=== PATIENT | male | born 1955 | race African-American/Black ===

== ENCOUNTER 2016-05-16 15:14 | Emergency (ER) | payer OTHER ==
[~2016-05-16] VITALS: Ht 172.7 cm; Wt 90.7 kg
[2016-05-16 15:15] VITALS: BP 137/95; PULSE 79; RESP 19; TEMP 97.6; O2SAT 99
--- NOTE | 2016-05-16 15:15 | NUR ---
Patient triaged and placed in waiting room. VSS and patient appears in no acute distress at this time. Accompanied by SELF, awaiting available bed, and MD notified of need for MSE.
--- NOTE | 2016-05-16 16:24 | NUR ---
Patient evaluated by ER ELEMENTARY LIBRARIAN Massiel in triage room
[2016-05-16] MEDS ORDERED: cloNIDine HCL 0.1 MG TABLET PO ONE ×2 (16:45→18:00)
[2016-05-16] MEDS ORDERED: KETOROLAC TROMETHAMINE 60 MG/2 ML VIAL IM ONE (16:45)
--- NOTE | 2016-05-16 17:32 | NUR ---
Patient to ER bed 8 to gown for evaluation. Side rails up. Report given to Mery PATEL.
--- NOTE | 2016-05-16 17:39 | NUR ---
patient to ER C/O severe 9/10 migraine headache for the past 3 weeks. States the pain of on and off with mild photophobia. AAOx4, unlabored breathing, no gait abnormalities, no N/V, no motor/sensory differences right/left. No signs of acute distress
[2016-05-16 18:29] VITALS: BP 141/77; PULSE 74; RESP 19; TEMP 98.2; O2SAT 99
--- NOTE | 2016-05-16 18:29 | NUR ---
Patient given written and verbal discharge instructions and verbalizes understanding. ER APPRENTICE Massiel discussed with patient the results and treatment provided. Patient in stable condition. ID arm band removed. Patient educated on pain management and to follow up with PMD. Pain Scale 0/10. Opportunity for questions provided and answered.
== END 2016-05-16 18:29 | disposition home or self-care (01) ==
LOC: SED 15:14
DX: I10 Essential (primary) hypertension (principal); E78.5 Hyperlipidemia, unspecified; Z86.79 Personal history of other diseases of the circulatory system
CPT/HCPCS: 70450; 93005; 96372; 99284; J1885

== ENCOUNTER 2021-06-11 12:09 | Emergency (ER) | payer OTHER ==
[~2021-06-11] VITALS: Ht 172.7 cm; Wt 93.0 kg
[2021-06-11 12:52] VITALS: BP_SYST 139
[2021-06-11] MEDS ORDERED: CEPH-548 PO (13:13)
[2021-06-11] MEDS ORDERED: METH-634 PO (13:14)
[2021-06-11 13:27] VITALS: BP_SYST 139
== END 2021-06-11 13:29 | disposition home or self-care (01) ==
LOC: SED 12:09
DX: S40.261A Insect bite (nonvenomous) of right shoulder, initial encounter (principal); M62.838 Other muscle spasm; W57.XXXA Bitten or stung by nonvenomous insect and other nonvenomous arthropods, initial encounter; Y93.89 Activity, other specified; Y92.89 Other specified places as the place of occurrence of the external cause; Y99.8 Other external cause status
CPT/HCPCS: 99283